=== PATIENT | female | born 1930 | race Caucasian/White ===

== ENCOUNTER 2017-10-26 16:52 | Inpatient (IN) | payer MEDICARE ==
[~2017-10-26] VITALS: Ht 162.6 cm; Wt 83.5 kg
[2017-10-26] MEDS ORDERED: MAGNESIUM HYDROXIDE 30 ML LIQUID UDC PO PRN (17:15)
[2017-10-26] MEDS ORDERED: ACETAMINOPHEN 325 MG TABLET PO PRN (17:15)
[2017-10-26] MEDS ORDERED: ONDANSETRON 4 MG/2 ML VIAL IV PRN (17:15)
[2017-10-26] MEDS ORDERED: Z GUARD REMEDY PASTE 57 GM TUBE TOP PRN (17:15)
[2017-10-26] MEDS ORDERED: CALC-897 PO (17:31)
[2017-10-26] MEDS ORDERED: LEVO25TA9 PO (17:31)
[2017-10-26] MEDS ORDERED: VITAMIN D PO (17:31)
[2017-10-26] MEDS ORDERED: TRAM50TA2 PO (17:31)
[2017-10-26] MEDS ORDERED: CYCL5TAB PO (17:31)
[2017-10-26] MEDS ORDERED: VALS1TAB4 PO (17:31)
[2017-10-26 20:00] VITALS: BP 164/58
[2017-10-26] MEDS: DOCUSATE SODIUM 100 MG CAPSULE PO SCH (21:23)
[2017-10-26] MEDS: CLONIDINE HCL 0.1 MG TABLET PO PRN (21:23)
[2017-10-26] MEDS: TRAMADOL HCL 50 MG TABLET PO PRN (21:24)
[2017-10-26 22:25] VITALS: BP 146/43
[2017-10-27 06:27] VITALS: BP 138/47
[2017-10-27] MEDS: LEVOTHYROXINE SODIUM 25 MCG TABLET PO SCH (06:31)
[2017-10-27] MEDS: LOSARTAN POTASSIUM 50 MG TABLET PO SCH (08:39)
[2017-10-27] MEDS: CALCIUM CARB/VITAMIN D 500MG-200UNITS TABLET PO SCH ×2 (08:39→17:09)
[2017-10-27] MEDS: HYDROCHLOROTHIAZIDE 12.5 MG CAPSULE PO SCH (08:40)
[2017-10-27] MEDS: TRAMADOL HCL 50 MG TABLET PO PRN ×3 (08:40→23:11)
[2017-10-27] MEDS ORDERED: CYCLOBENZAPRINE HCL 10 MG TABLET PO PRN (09:00)
[2017-10-27] MEDS ORDERED: [UNRECOGNIZED DRUG - OTHER] PO SCH (09:00)
[2017-10-27] MEDS: DOCUSATE SODIUM 100 MG CAPSULE PO SCH (20:09)
[2017-10-27 20:42] VITALS: BP 147/55
[2017-10-28 06:00] VITALS: BP 126/52
[2017-10-28] MEDS: LEVOTHYROXINE SODIUM 25 MCG TABLET PO SCH (06:35)
[2017-10-28] MEDS: CALCIUM CARB/VITAMIN D 500MG-200UNITS TABLET PO SCH ×2 (08:25→17:11)
[2017-10-28] MEDS: HYDROCHLOROTHIAZIDE 12.5 MG CAPSULE PO SCH (08:26)
[2017-10-28] MEDS: TRAMADOL HCL 50 MG TABLET PO PRN ×3 (08:26→20:58)
[2017-10-28] MEDS: LOSARTAN POTASSIUM 50 MG TABLET PO SCH (08:26)
[2017-10-28 20:00] VITALS: BP 148/55
[2017-10-28] MEDS: DOCUSATE SODIUM 100 MG CAPSULE PO SCH (20:56)
[2017-10-29] MEDS: LEVOTHYROXINE SODIUM 25 MCG TABLET PO SCH (06:56)
[2017-10-29] MEDS: TRAMADOL HCL 50 MG TABLET PO PRN ×3 (06:57→18:57)
[2017-10-29] MEDS: HYDROCHLOROTHIAZIDE 12.5 MG CAPSULE PO SCH (09:00)
[2017-10-29] MEDS: LOSARTAN POTASSIUM 50 MG TABLET PO SCH ×2 (09:00→10:00)
[2017-10-29 09:03] VITALS: BP 148/45
[2017-10-29 09:12] VITALS: BP 125/48
[2017-10-29] MEDS: CALCIUM CARB/VITAMIN D 500MG-200UNITS TABLET PO SCH ×2 (09:16→16:47)
[2017-10-29 16:48] VITALS: BP 173/53
[2017-10-29] MEDS: CLONIDINE HCL 0.1 MG TABLET PO PRN (16:48)
[2017-10-29 18:55] VITALS: BP 123/52
[2017-10-29 20:00] VITALS: BP 132/51
[2017-10-29] MEDS: DOCUSATE SODIUM 100 MG CAPSULE PO SCH (20:30)
[2017-10-30] MEDS: TRAMADOL HCL 50 MG TABLET PO PRN ×3 (04:44→18:35)
[2017-10-30 04:59] VITALS: BP 156/58
[2017-10-30] MEDS: LEVOTHYROXINE SODIUM 25 MCG TABLET PO SCH (06:45)
[2017-10-30 07:48] LABS: BASOPHILS # (AUTO) 0.1 K/uL (0.0-8.0); BASOPHILS % (AUTO) 0.7 % (0.0-2.0); EOSINOPHILS # (AUTO) 0.3 K/uL (0.0-0.7); EOSINOPHILS % (AUTO) 3.3 % (0.0-7.0); HEMATOCRIT 31.2 % (31.2-41.9); HEMOGLOBIN 10.6 g/dL (10.9-14.3); LYMPHOCYTES # (AUTO) 3.2 K/uL (20.0-40.0); LYMPHOCYTES % (AUTO) 35.8 % (20.5-51.5); MEAN CORPUSCULAR HEMOGLOBIN 31.4 uug (24.7-32.8); MEAN CORPUSCULAR HGB CONC 34 g/dL (32.3-35.6); MEAN CORPUSCULAR VOLUME 92.1 fL (75.5-95.3); MONOCYTES # (AUTO) 0.8 K/uL (2.0-10.0); MONOCYTES % (AUTO) 9.3 % (0.0-11.0); NEUTROPHILS # (AUTO) 4.5 K/uL (1.8-8.9); NEUTROPHILS % (AUTO) 50.9 % (38.5-71.5); PLATELET COUNT (AUTO) 152 K/uL (179-408); RED BLOOD CELL COUNT(AUTO) 3.39 MIL/uL (3.63-4.92); WHITE BLOOD COUNT (AUTO) 8.9 K/uL (3.8-11.8)
[2017-10-30 08:24] LABS: ALANINE AMINOTRANSFERASE 31 U/L (14-59); ALKALINE PHOSPHATASE 104 U/L (50-136); ASPARTATE AMINOTRANSFERASE 29 U/L (15-37); BILIRUBIN,TOTAL 0.5 mg/dL (0.2-1.0); CARBON DIOXIDE 33 mmol/L (21-32); CHLORIDE 101 mmol/L (98-107); CHOLESTEROL 137 mg/dL (<200); CREATININE 1.1 mg/dL (0.6-1.3); GLUCOSE 113 mg/dL (74-106); HDL CHOLESTEROL 45 mg/dL (40-60); MAGNESIUM 1.8 mg/dL (1.8-2.4); PHOSPHOROUS 4.2 mg/dL (2.5-4.9); POTASSIUM 4.9 mmol/L (3.5-5.1); TOTAL PROTEIN, SERUM 6.1 g/dL (6.4-8.2); TRIGLYCERIDES 56 MG/DL (30-150); UREA NITROGEN, BLOOD 28 mg/dL (7-18)
[2017-10-30] MEDS: CALCIUM CARB/VITAMIN D 500MG-200UNITS TABLET PO SCH ×2 (08:25→17:22)
[2017-10-30] MEDS: LOSARTAN POTASSIUM 50 MG TABLET PO SCH (08:29)
[2017-10-30 08:51] LABS: THYROID STIMULATING HORMONE 3.524 mIU/mL (0.358-3.740)
[2017-10-30] MEDS: DOCUSATE SODIUM 100 MG CAPSULE PO SCH (20:33)
[2017-10-30] MEDS: CLONIDINE HCL 0.1 MG TABLET PO PRN (20:33)
[2017-10-30 20:39] VITALS: BP 182/75
[2017-10-30 21:49] VITALS: BP 154/67
[2017-10-31 05:19] VITALS: BP 141/64
[2017-10-31] MEDS: LEVOTHYROXINE SODIUM 25 MCG TABLET PO SCH (06:40)
[2017-10-31] MEDS: CALCIUM CARB/VITAMIN D 500MG-200UNITS TABLET PO SCH ×2 (08:49→17:08)
[2017-10-31] MEDS: LOSARTAN POTASSIUM 50 MG TABLET PO SCH (08:49)
[2017-10-31] MEDS: TRAMADOL HCL 50 MG TABLET PO PRN ×3 (08:52→19:03)
[2017-10-31 19:42] VITALS: BP 130/46
[2017-10-31] MEDS: DOCUSATE SODIUM 100 MG CAPSULE PO SCH (20:50)
[2017-11-01 04:39] VITALS: BP 149/50
[2017-11-01] MEDS: LEVOTHYROXINE SODIUM 25 MCG TABLET PO SCH (06:31)
[2017-11-01] MEDS: TRAMADOL HCL 50 MG TABLET PO PRN ×2 (08:26→15:17)
[2017-11-01] MEDS: CALCIUM CARB/VITAMIN D 500MG-200UNITS TABLET PO SCH ×2 (08:26→16:31)
[2017-11-01] MEDS: LOSARTAN POTASSIUM 50 MG TABLET PO SCH (08:27)
[2017-11-01 16:20] VITALS: BP 143/65
[2017-11-01 20:25] VITALS: BP 157/62
[2017-11-01] MEDS: DOCUSATE SODIUM 100 MG CAPSULE PO SCH (20:34)
[2017-11-02 05:00] VITALS: BP 136/66
[2017-11-02] MEDS: LEVOTHYROXINE SODIUM 25 MCG TABLET PO SCH (05:54)
[2017-11-02] MEDS: CALCIUM CARB/VITAMIN D 500MG-200UNITS TABLET PO SCH ×2 (08:49→17:14)
[2017-11-02] MEDS: LOSARTAN POTASSIUM 50 MG TABLET PO SCH (08:50)
[2017-11-02] MEDS: TRAMADOL HCL 50 MG TABLET PO PRN ×2 (09:03→15:40)
[2017-11-02] MEDS ORDERED: BISACODYL 10 MG SUPP.RECT RC PRN (15:30)
[2017-11-02 15:52] VITALS: BP 152/58
[2017-11-02 20:59] VITALS: BP 130/54
[2017-11-02] MEDS: DOCUSATE SODIUM 100 MG CAPSULE PO SCH (21:06)
[2017-11-03 06:01] VITALS: BP 139/62
[2017-11-03] MEDS: LEVOTHYROXINE SODIUM 25 MCG TABLET PO SCH (06:33)
[2017-11-03] MEDS: CALCIUM CARB/VITAMIN D 500MG-200UNITS TABLET PO SCH ×2 (08:37→17:00)
[2017-11-03] MEDS: TRAMADOL HCL 50 MG TABLET PO PRN ×2 (08:37→20:59)
[2017-11-03] MEDS: LOSARTAN POTASSIUM 50 MG TABLET PO SCH (08:37)
[2017-11-03 08:39] VITALS: BP 135/45
[2017-11-03 19:30] VITALS: BP 156/65
[2017-11-03] MEDS: DOCUSATE SODIUM 100 MG CAPSULE PO SCH (20:54)
[2017-11-04 04:00] VITALS: BP 132/67
[2017-11-04] MEDS: LEVOTHYROXINE SODIUM 25 MCG TABLET PO SCH (06:49)
[2017-11-04] MEDS: LOSARTAN POTASSIUM 50 MG TABLET PO SCH (08:29)
[2017-11-04] MEDS: CALCIUM CARB/VITAMIN D 500MG-200UNITS TABLET PO SCH ×2 (08:29→17:26)
[2017-11-04 09:00] VITALS: BP 149/55
[2017-11-04 16:38] VITALS: BP 134/52
[2017-11-04] MEDS: DOCUSATE SODIUM 100 MG CAPSULE PO SCH (20:20)
[2017-11-04 20:37] VITALS: BP 152/57
[2017-11-05 06:49] VITALS: BP 136/58
[2017-11-05] MEDS: LEVOTHYROXINE SODIUM 25 MCG TABLET PO SCH (07:13)
[2017-11-05] MEDS: CALCIUM CARB/VITAMIN D 500MG-200UNITS TABLET PO SCH (08:15)
[2017-11-05 08:16] VITALS: BP 139/67
[2017-11-05] MEDS: LOSARTAN POTASSIUM 50 MG TABLET PO SCH (08:16)
[2017-11-05] MEDS: TRAMADOL HCL 50 MG TABLET PO PRN (12:26)
== END 2017-11-05 14:18 | disposition home health service (06) | DRG 948 ==
PROVIDERS: ADMIT Physical Medicine & Rehabilitation Pain Medicine; ATTEND Physical Medicine & Rehabilitation Pain Medicine
DX: R53.81 Other malaise (principal); D68.59 Other primary thrombophilia; S70.02XD Contusion of left hip, subsequent encounter; W01.0XXD Fall on same level from slipping, tripping and stumbling without subsequent striking against object, subsequent encounter; E03.9 Hypothyroidism, unspecified; I10 Essential (primary) hypertension; M54.5 Low back pain; R26.9 Unspecified abnormalities of gait and mobility; R53.1 Weakness; M47.9 Spondylosis, unspecified; I70.0 Atherosclerosis of aorta; I51.7 Cardiomegaly; M81.0 Age-related osteoporosis without current pathological fracture; R73.9 Hyperglycemia, unspecified
CPT/HCPCS: 36415; 71045; 82306; 83735; 84100; 84443; 85025; 92523; 92526; 92610; 93005; 97110; 97112; 97116; 97530; 97535